=== PATIENT | female | born 1985 | race Two or more races ===

== ENCOUNTER 2018-04-12 20:44 | Emergency (ER) | payer SELFPAY ==
[~2018-04-12] VITALS: Ht 165.1 cm; Wt 81.6 kg
[2018-04-12 20:51] VITALS: BP 166/90
--- NOTE | 2018-04-12 21:10 | PHYS DOC ---
Past Medical History Past Medical History: No Pertinent History Past Surgical History: No Surgical History Alcohol Use: None Drug Use: None Adult General Chief Complaint Chief Complaint: Neck Pain HPI HPI 33-year-old female presents to ER with complaints of rash to left side of her face, chin, and into her hairline. Patient states rash started yesterday and has been gradually worsening. Patient denies any throat swelling or difficulty swallowing. Patient denies shortness of air. She denies any chest pain or tightness. She denies any recent illness. Patient reports she has had intermittent cough denies fever or chills, fatigue, or flulike symptoms. LMP was last month but she has concerns of . She denies any over-the- counter medications for symptoms. Review of Systems Review of Systems Constitutional: Denies fever or chills [] Eyes: Denies change in visual acuity, redness, or eye pain [] HENT: Denies nasal congestion or sore throat [] Respiratory: Denies shortness of breath. Reports cough Cardiovascular: Denies CP/tightness GI: Denies nausea, vomiting : Denies dysuria or hematuria [] Musculoskeletal: Denies back pain or joint pain [] Integument: Reports rash on lt side of face/chin and into lt posterior hairline Neurologic: Denies headache, focal weakness or sensory changes [] All other systems were reviewed and found to be within normal limits, except as documented in this note. Current Medications Current Medications Current Medications Medications (Trade) Dose Ordered Sig/Prisca Start Time Stop Time Status Last Admin Dose Admin Diphenhydramine HCl (Benadryl) 25 mg 1X ONCE 04/12/18 21:15 04/12/18 21:16 DC 04/12/18 21:20 25 MG Prednisone (Prednisone) 50 mg 1X ONCE 04/12/18 21:15 04/12/18 21:16 DC 04/12/18 21:19 50 MG Allergies Allergies Allergies Coded Allergies Type Severity Reaction Last Updated Verified No Known Drug Allergies 07/20/15 No Physical Exam Physical Exam Constitutional: Well developed, well nourished, no acute distress, non-toxic appearance. Clear speech- no muffled voice HENT: Normocephalic, atraumatic, bilateral ears normal, oropharynx moist- no pharyngeal/tonsillar swelling/erythema, no oral exudates, nose normal. [] Eyes: Pupils equal, conjunctiva normal, no discharge. [] Neck: Normal range of motion, no tenderness, supple, no stridor/gross adenopathy Cardiovascular: Heart rate regular rhythm, no murmur [] Lungs & Thorax: Bilateral breath sounds clear to auscultation. Resp. equal/ nonlabored Skin: Warm, dry. Reddened raised rash on lt cheek in 2 areas- no involvement of eye. Small area similar rash just under chin. Small area on lt side posterior head at base of hairline- tender to palp. no reddened/raise rash visible. Extremities: No tenderness, no cyanosis, no clubbing, ROM intact, no edema. [] Neurologic: Alert and oriented X 3, normal motor function, normal sensory function, no focal deficits noted. [] Psychologic: Affect normal, judgement normal, mood normal. [] Current Patient Data Vital Signs Vital Signs Date Time Temp Pulse Resp B/P (MAP) Pulse Ox O2 Delivery O2 Flow Rate FiO2 04/12/18 20:51 97.9 64 20 166/90 (115) 100 Room Air 97.9 Lab Values Laboratory Tests Test 04/12/18 21:10 POC Urine HCG, Qualitative Hcg negative (Negative) EKG EKG [] Radiology/Procedures Radiology/Procedures [] Course & Med Decision Making Course & Med Decision Making Pertinent Labs reviewed. (See chart for details) 2145: Patient was evaluated in the ER for complaints of rash to left side of face extending into her hairline. Patient denies any new lotions or soaps. Discussed probable contact dermatitis. On reevaluation patient reports following Benadryl and prednisone dose the burning sensation at the rash site has improved. Area on left cheek appears less reddened. Patient is in no visible distress with equal nonlabored respirations at this time. Patient had concerns for so UCG was done which was negative. Discussed plans for home discharge with patient to use [id number] antihistamine such as Benadryl as needed. Will provide prescription for prednisone with education to start prescriptions tomorrow. Discussed if symptoms persist or with concerns patient to follow-up with primary care physician. Patient encouraged to increase fluid intake. Discharge instructions discussed and education provided on signs and symptoms to return to ER for. BP 132/79 HR 79 O2 sat 99% RA RR 20 at time of discharge. Dragon Disclaimer Dragon Disclaimer This electronic medical record was generated, in whole or in part, using a voice recognition dictation system. Departure Departure Impression: Primary Impression: Contact dermatitis Disposition: 01 HOME, SELF-CARE Condition: STABLE Referrals: NO PCP (PCP) Patient Instructions: Contact Dermatitis Additional Instructions: You can take over the counter antihistamines such as benedryl as directed on container. Start prednisone prescription tomorrow. If symptoms persist follow-up with primary doctor for re-evaluation. If symptoms worsen and you are having difficulty swallowing, shortness of air, or chest pain/tightness return to the Emergency Department. Drink plenty of water. Scripts Prednisone (PREDNISONE) 50 Mg Tablet 1 TAB PO DAILY, #4 TAB 0 Refills Start on 04/13/18 Prov: NANETTE BRITO APRN 04/12/18 NANETTE BRITO APRN Apr 12, 2018 21:10
[2018-04-12] MEDS ORDERED: predniSONE 10 MG TABLET PO ONE (21:15)
[2018-04-12] MEDS ORDERED: diphenhydrAMINE HCL 25 MG CAPSULE PO ONE (21:15)
[2018-04-12] MEDS ORDERED: PRED50TA PO (21:52)
== END 2018-04-12 21:55 | disposition home or self-care (01) ==
LOC: ER 20:44
DX: L25.9 Unspecified contact dermatitis, unspecified cause (principal); R05 Cough
CPT/HCPCS: 81025; 99283; J7512; Q0163

== ENCOUNTER 2019-12-16 22:33 | Emergency (ER) | payer SELFPAY ==
[~2019-12-16] VITALS: Ht 167.6 cm; Wt 123.1 kg
[~2019-12-16 22:33] MED LIST: PRED50TA PO
[2019-12-16] MEDS ORDERED: LIDO:MAALOX 1:1 20 ML SINGLE DOSE. SWSW ONE (23:15)
--- NOTE | 2019-12-16 23:18 | PHYS DOC ---
Past Medical History Past Medical History: No Pertinent History Past Surgical History: No Surgical History Smoking Status: Never Smoker Alcohol Use: None Drug Use: None General Adult EDM: Chief Complaint: SWALLOWED FORIEGN BODY HPI: HPI: Patient is a 34 year old female who drank a drink of soda this evening and had a bee and it. This happened about 4-5 hours ago. Patient's had progressively worse pain in her throat that is worse with swallowing. Patient denies any drooling or shortness of breath. Patient denies any systemic symptoms. Symptoms are worse with swallowing. Review of Systems: Review of Systems: Constitutional: Denies fever or chills. [] Eyes: Denies change in visual acuity. [] HENT: Denies nasal congestion but complains of throat pain Respiratory: Denies cough or shortness of breath. [] Cardiovascular: Denies chest pain or edema. [] GI: Denies abdominal pain, nausea, vomiting, bloody stools or diarrhea. [] : Denies dysuria. [] Musculoskeletal: Denies back pain or joint pain. [] Integument: Denies rash. [] Neurologic: Denies headache, focal weakness or sensory changes. [] Endocrine: Denies polyuria or polydipsia. [] Lymphatic: Denies swollen glands. [] Psychiatric: Denies depression or anxiety. [] Heart Score: Risk Factors: Risk Factors: DM, Current or recent (<one month) smoker, HTN, HLP, family history of CAD, obesity. Risk Scores: Score 0 - 3: 2.5% MACE over next 6 weeks - Discharge Home Score 4 - 6: 20.3% MACE over next 6 weeks - Admit for Clinical Observation Score 7 - 10: 72.7% MACE over next 6 weeks - Early Invasive Strategies Current Medications: Current Medications Medications (Trade) Dose Ordered Sig/Prisca Start Time Stop Time Status Last Admin Dose Admin Multi-Ingredient Mouthwash/Gargle (Gi Cocktail) 20 ml 1X ONCE 12/16/19 23:15 12/16/19 23:16 Allergies: Allergies: Allergies Coded Allergies Type Severity Reaction Last Updated Verified No Known Drug Allergies 07/20/15 No Physical Exam: PE: Constitutional: Well developed, well nourished, no acute distress, non-toxic appearance. [] HENT: Normocephalic, atraumatic, bilateral external ears normal, oropharynx moist, no oral exudates, nose normal. [] Eyes: PERRLA, EOMI, conjunctiva normal, no discharge. [] Neck: Normal range of motion, no tenderness, supple, no stridor. [] Cardiovascular:Heart rate regular rhythm, peripheral pulses intact, cap refill brisk Lungs & Thorax: Bilateral breath sounds clear to auscultation [] Abdomen: soft, no tenderness, no masses, no pulsatile masses. [] Skin: Warm, dry, no erythema, no rash. [] Back: No tenderness, no CVA tenderness. [] Extremities: No tenderness, no cyanosis, no clubbing, ROM intact, no edema. [] Neurologic: Alert and oriented X 3, normal motor function, normal sensory function, no focal deficits noted. [] Psychologic: Affect normal, judgement normal, mood normal. [] EKG: EKG: [] Radiology/Procedures: Radiology/Procedures: [] Course & Med Decision Making: Course & Med Decision Making Pertinent Labs and Imaging studies reviewed. (See chart for details) [] Patient reassessed at 11:40 PM. Patient is in no distress. Clinically s table. Will send patient home with Benadryl but no evidence of airway compromise at this time. Iterable Disclaimer: Iterable Disclaimer: This electronic medical record was generated, in whole or in part, using a voice recognition dictation system. Departure Departure Impression: Primary Impression: History of swallowed foreign body Additional Impression: Throat pain in adult Disposition: 01 HOME, SELF-CARE Condition: STABLE Referrals: NO PCP (PCP) PCP 2-3 DAYS Patient Instructions: Sore Throat Additional Instructions: EMERGENCY DEPARTMENT GENERAL DISCHARGE INSTRUCTIONS THANK YOU for coming to [facility] Emergency Department (ED) bogdan crespo and trusting us with your care. We trust that you had a positive experience in our Emergency Department. If you wish to speak to the department Management you can contact the supervisor jewelry department at . YOUR FOLLOW UP INSTRUCTIONS ARE FOLLOWS: Do you have a private doctor? If you do not have a private doctor, please ask for a resource list of physicians or clinics that may be able to assist you with follow up care. The Emergency Physician has interpreted your x-rays. The X-ray specialist will also review them. If there is a change in the findings you will be notified in 48 hours when at all possible. A lab test or lab culture may have been done, your results will be reviewed and you will be notified if you need a change in treatment. ADDITIONAL INSTRUCTIONS AND INFORMATION Your care today has been supervised by a physician who is specially trained in emergency care. Many problems require more than one evaluation for a complete diagnosis and treatment. We recommend that you schedule your follow up appointment as recommended to ensure complete treatment of your illness or injury. If you are unable to obtain follow up care and continue to have a problem, or if your condition worsens we recommend that you return to the ED. We are not able to safely determine your condition over the phone nor are we able to give sound medical advice over the phone. For these safety reasons, if you call for medical advice we will ask you to come to the ED for further evaluation If you have any questions regarding these discharge instructions please call the ED at . SAFETY INFORMATION In the interest of safety, wellness, and injury prevention; we encourage you to wear your seatbelt, if you smoke; quit smoking, and we encourage your family to use protective helmet for bicycling and other sporting events that present an increased risk for head injury. IF YOUR SYMPTOMS WORSEN OR NEW SYMPTOMS DEVELOP, OR YOU HAVE CONCERNS ABOUT YOUR CONDITION; OR IF YOUR CONDITION WORSENS WHILE YOU ARE WAITING FOR YOUR FOLLOW UP APPOINTMENT; EITHER CONTACT YOUR PRIMARY CARE DOCTOR, THE PHYSICIAN WHOSE NAME AND NUMBER YOU WERE GIVEN, OR RETURN TO THE ED IMMEDIATELY. Scripts Diphenhydramine Hcl (BENADRYL) 25 Mg Capsule 25 MG PO Q6-8HRS PRN for PAIN, #25 CAP Prov: MERCEDES CRUZ MD 12/16/19 Justicifation of Admission Dx: Justifications for Admission: Justification of Admission Dx: N/A MERCEDES CRUZ MD Dec 16, 2019 23:18
[2019-12-16] MEDS ORDERED: DIPH25CA58 PO (23:42)
[2019-12-17 00:41] VITALS: BP 124/65
== END 2019-12-17 00:24 | disposition home or self-care (01) ==
LOC: ER 22:33
DX: R07.0 Pain in throat (principal)
CPT/HCPCS: 99282